=== PATIENT | male | born 1960 | race Caucasian/White ===

== ENCOUNTER 2017-10-04 19:20 | Emergency (ER) | payer SELFPAY ==
[~2017-10-04] VITALS: Ht 185.4 cm; Wt 100.0 kg
[2017-10-04 19:22] VITALS: Ht 185.4 cm; Wt 100.0 kg
--- NOTE | 2017-10-04 23:24 | ERD ---
ER Documentation Chief Complaint Chief Complaint TRIPPED AND FELL WITH PAIN/SWELLING IN RT ANKLE. EXISTING INFX & PREV FX HPI BIBA for evaluation of right ankle injury, pt reports that he steeped into a hole with right foot today and fell to the ground, patient reports that he could not weight-bear or get up after the fall, states he had to call his for assistance and that they called 911. pt reports that he is visiting and just started walking after a long convalescent r/t a left foot infection . pt is a DM, infectible insulin and oral hypoglycemics patient denies any other injury at this time. ROS All systems reviewed and are negative except as per history of present illness. Medications Home Meds Active Scripts Hydrocodone/Acetaminophen ([place]ell[place] 5-325 Tablet) 1 Each Tablet, 1 TAB PO Q6H Y for PAIN, #7 TAB Prov:MISTY,ELANA 10/05/17 Famotidine* (Pepcid*) 20 Mg Tablet, 20 MG PO BID for 10 Days, #20 TAB Prov:MISTY,ELANA 10/05/17 Naproxen* (Naprosyn*) 500 Mg Tablet, 500 MG PO BID Y for PAIN AND/OR INFLAMMATION, #20 TAB Prov:MISTY,ELANA 10/05/17 PMhx/Soc Medical and Surgical Hx: pt denies Medical Hx, pt denies Surgical Hx Hx Alcohol Use: Yes Hx Substance Use: No Hx Tobacco Use: Yes Smoking Status: Former smoker Physical Exam Vitals Vital Signs Date Time Temp Pulse Resp B/P Pulse Ox O2 Delivery O2 Flow Rate FiO2 10/04/17 19:22 98.8 80 22 166/89 99 Vitals stable, triage notes reviewed Blood pressure noted to be 166/89 Physical Exam Const: Well-nourished well-hydrated well-appearing 56-year-old male patient no acute distress Head: Eyes: ENT: Neck: Resp: Cardio: Abd: Skin: Back: Ext: Lower Extremity -ankle/foot Skin: No laceration or obvious deformity, skin is dirty from dirt on the ground secondary to fall, large inner ankle/foot scar noted Compartments: Soft Motor: AROM left foot and ankle. Normal range of motion hip/ knee Sensation: [Intact to light touch all surfaces.] Bones: Nontender pelvis/knee/tender proximal tibia/ malleoli/ foot, fifth metatarsal tenderness Joints: Pitting edema or laxity Pulses/Perfusion: 2+ DP, Capillary refill < 2 seconds Neur: Awake and alert Psych: Normal Mood and Affect Results 24 hrs Current Medications Medications (Trade) Dose Ordered Sig/Aron Route PRN Reason Start Time Stop Time Status Last Admin Dose Admin Acetaminophen/ Hydrocodone Bitart ([place]ell[place] (10/325)) 2 tab ONCE ONCE PO 10/04/17 23:30 10/04/17 23:34 DC Acetaminophen/ Hydrocodone Bitart (Kell[place] (10325)) 1 tab ONCE ONCE PO 10/05/17 00:00 10/05/17 00:01 DC 10/04/17 23:35 Procedures/MDM PROCEDURE: XR right ankle. CLINICAL INDICATION: Injury with right lateral ankle pain TECHNIQUE: AP , oblique and lateral views of the right ankle were performed. COMPARISON: None. FINDINGS: There is normal mineralization and alignment. There is no evidence of fracture. Severe narrowing of the tibiotalar joint is present with cystic formation on both sides of the articulation and questionable erosions. Soft tissue swelling mostly over the lateral malleolus is present. There is no evidence for a radiopaque foreign body. RPTAT:HJJR IMPRESSION: 1. Lateral soft tissue swelling without evidence of fracture or dislocation involving the right ankle. 2. Severe narrowing of the tibiotalar joint with cystic changes at the articular surface and questionable erosion. Connective tissue disorder is difficult to entirely exclude in the proper clinical setting. Electronically viewed and signed by Ortiz Nunez Physician on 10/05/2017 00:33 PROCEDURE: XR right foot. CLINICAL INDICATION: Injury TECHNIQUE: AP, lateral and oblique views of the right foot were obtained. COMPARISON: None. FINDINGS: Some heterogeneous areas scattered demineralization are noted. No fracture or osseous lesion is identified. There is no evidence for dislocation. Mild degenerative narrowing of the first metatarsal phalangeal joint is seen. There is mild midfoot degenerative narrowing. Plantar calcaneal spur is seen. The soft tissues are unremarkable. There is no evidence for radiopaque foreign body. RPTAT:HJJR IMPRESSION: 1. No evidence of fracture or dislocation involving the right foot. 2. 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 Ortiz Nunez, Physician Date Time This 56-year-old male patient presents to emergency department after inadvertently stepping into a hole while walking to his car earlier today. Patient reports that he injured his ankle, fell to the ground was unable to get up, patient is here visiting from [facility] he called for his who is upstairs in his daughter's apartment, they called 911. Patient reports a history of right ankle/foot infection requiring multiple surgeries. Patient is a diabetic. Emergency room course includes history and physical exam, radiographic imaging as read by radiologist right foot no evidence of fracture or dislocation involving the right foot. 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 X-ray of right ankle: Lateral soft tissue swelling without evidence of fracture or dislocation involving the right ankle. Severe narrowing of the tibiotarsal joint with cystic changes at the articular surface and questionable erosion. Connective tissue disorder is difficult to entirely exclude in the proper clinical setting. Patient will be placed in a air splint, crutches, 7 [place], Naprosyn 500 mg twice daily, Pepcid 20 mg twice daily. Splint Assessment: Neurovascularly intact post splint placement with good fit. Patient is stable with no new complaints during ER course, clinically there is no current evidence to suggest peroneal nerve injury , Achilles tendon rupture, Lisfranc fracture, diabetic foot ulcer, vascular occlusion, or any other emergent condition appearing to require further evaluation or hospitalization. I feel the patient is stable for discharge at this time. I have discussed results, examination findings, the treatment plan with the patient and family present prior to discharge. Indications for emergent reevaluation, side effects of medication were also discussed. All questions were answered. Patient verbalizes understanding and agrees with plan of care. Departure Diagnosis: Primary Impression: Sprain of right ankle Encounter type: initial encounter Involved ligament of ankle: unspecified ligament Qualified Code: S93.401A - Sprain of right ankle, unspecified ligament, initial encounter Condition: Good Patient Instructions: Self-Care for Strains and Sprains, Treating Ankle Sprains Additional Instructions: Thank you for for coming to [facility] for your care today. Please ask your nurse or provider if you have questions about your care today and do not leave until all your questions have been answered. Please use any medications given as directed and follow-up with your doctor (or the doctor you were referred to) in the next 2-3 days. If you do not have a primary care doctor you may follow up at the [facility] [place] (listed below). You may also use motrin and tylenol as needed for fever and/or pain unless instructed otherwise by your provider or nurse. Indications for more urgent follow-up have been discussed, but you may return to the Emergency Department at ANY time for any worrisome or worsening symptoms. If you have abdominal pain, please know that no test or exam you received is perfect and you should follow up within 8 hours for continued pain. If you had any imaging studies today, such as an X-Ray or CT Scan, these studies will be reviewed later by a radiologist. You will be called if there are important findings that were not identified today, so make sure the contact information you provided at registration is correct. If you received any narcotic pain control medicine today, such as Vicodin, Morphine or Dilaudid, your coordination and judgment may be affected for a number of hours. Please do not drive or operate heavy machinery, and you may want someone to assist you at home. If you were given a prescription for narcotic medication, be aware that it is very addictive- use sparingly and only if necessary. ELANA JAY Oct 04, 2017 23:24
[2017-10-04] MEDS ORDERED: HYDROCODONE/APAP (10/325) TAB PO ONE (23:30)
[2017-10-05] MEDS ORDERED: HYDROCODONE/APAP (10/325) TAB PO ONE
--- NOTE | 2017-10-05 00:33 | RADRPT ---
PROCEDURE: XR right ankle. CLINICAL INDICATION: Injury with right lateral ankle pain TECHNIQUE: AP , oblique and lateral views of the right ankle were performed. COMPARISON: None. FINDINGS: There is normal mineralization and alignment. There is no evidence of fracture. Severe narrowing of the tibiotalar joint is present with cystic formation on both sides of the articulation and question able erosions. Soft tissue swelling mostly over the lateral malleolus is present. There is no eviden ce for a radiopaque foreign body. RPTAT:HJJR IMPRESSION: 1. Lateral soft tissue swelling without evidence of fracture or dislocation involving the right an kle. 2. Severe narrowing of the tibiotalar joint with cystic changes at the articular surface and questi onable erosion. Connective tissue disorder is difficult to entirely exclude in the proper clinical setting. Physician Romulo Date Time Electronically viewed and signed by Physician Romulo on 10/05/2017 00:33 /
--- NOTE | 2017-10-05 00:35 | RADRPT ---
PROCEDURE: XR right foot. CLINICAL INDICATION: Injury TECHNIQUE: AP, lateral and oblique views of the right foot were obtained. COMPARISON: None. FINDINGS: Some heterogeneous areas scattered demineralization are noted. No fracture or osseous lesion is michelle ntified. There is no evidence for dislocation. Mild degenerative narrowing of the first metatarsal phalangeal joint is seen. There is mild midfoot degenerative narrowing. Plantar calcaneal spur is seen. The soft tissues are unremarkable. There is no evidence for radiopaque foreign body. RPTAT:HJJR IMPRESSION: 1. No evidence of fracture or dislocation involving the right foot. 2. 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 Physician Romulo Date Time Electronically viewed and signed by Physician Romulo on 10/05/2017 00:34 JR/
[2017-10-05] MEDS ORDERED: NAPR-260 PO (00:51)
[2017-10-05] MEDS ORDERED: FAMO-96 PO (00:51)
[2017-10-05] MEDS ORDERED: HYDR-906 PO (00:52)
[2017-10-05 01:10] VITALS: BP 168/98; PULSE 69; RESP 17; TEMP 97.8
== END 2017-10-05 01:15 | disposition home or self-care (01) ==
LOC: FTE 19:20
DX: S93.401A Sprain of unspecified ligament of right ankle, initial encounter (principal); W01.0XXA Fall on same level from slipping, tripping and stumbling without subsequent striking against object, initial encounter; Y92.9 Unspecified place or not applicable; Z87.891 Personal history of nicotine dependence
CPT/HCPCS: 73630